=== PATIENT | female | born 1975 | race Caucasian/White ===

== ENCOUNTER 2021-06-29 10:37 | Outpatient (REF) | payer BC, SELFPAY ==
[2021-07-01 14:44] LABS: COVID-19 RT-PCR UVMMC Result Negative (Negative)
== END 2021-06-29 10:38 | disposition home or self-care (01) ==
LOC: LBN 10:37
PROVIDERS: Visit Provider Nurse Practitioner Family
DX: Z20.822 Contact with and (suspected) exposure to COVID-19 (principal)
CPT/HCPCS: U0003